=== PATIENT | female | born 1955 | race Caucasian/White ===

== ENCOUNTER 2020-12-31 11:17 | Day surgery (SDC) | payer MEDICARE ==
[~2020-12-31] VITALS: Ht 162.6 cm; Wt 63.5 kg
[~2020-12-31 11:17] MED LIST: BAYER CHEWABLE81 MG PO; BREO ELLIPTA 11 EACH INH; LISINOPRIL5 MG PO; VENTOLIN HFA [SP8 GM INH
[2020-12-31 11:38] LABS: BASOPHILS 0.4 % (0-2); HEMATOCRIT 32.5 % (36.0-48.0); HEMOGLOBIN 10.4 g/dL (12-16); IMMATURE GRANULOCYTES 0.1 % (0-5); LYMPHOCYTE ABS# 3.02 10x3/uL (1.18-3.74); LYMPHOCYTES 44.4 % (15-50); MCH 26.9 pg (26.0-34.0); MCV 84.2 fL (80.0-100.0); MEAN PLATELET VOLUME 9.3 fL (7.4-10.4); MONOCYTES 9.9 % (2-11); NEUTROPHILS 41.2 % (40-80); PLATELET COUNT 421 10x3/uL (130-400); RBC 3.86 10x6/uL (4.00-5.40); WBC 6.8 10x3/uL (4.8-10.8)
[2020-12-31 11:45] LABS: CALC OSMOLALITY 277 mosm/kg (275-300); CALCIUM 9.1 mg/dL (8.5-10.1); CARBON DIOXIDE 23.9 mmol/L (21.0-32.0); CHLORIDE - SERUM 106 mmol/L (98-107); CREATININE - SERUM 0.7 mg/dL (0.6-1.3); GLUCOSE 87 mg/dL (74-106); POTASSIUM - SERUM 3.9 mmol/L (3.5-5.1); SODIUM 139 mmol/L (136-145); UREA NITROGEN 15 mg/dL (7-18); eGFR NON AFRICAN AMERICAN 89 mL/min (90-120)
[2020-12-31 14:54] VITALS: BP 130/63; Ht 162.6 cm; Wt 63.5 kg
--- NOTE | 2020-12-31 19:18 | NUR ---
1900 PT RESTING RIGHT ARM IN SLING.
--- NOTE | 2020-12-31 19:59 | NUR ---
1939 PAIN RELIEVED AND IV REMOVED AND INSTRUCTIONS GIVEN
--- NOTE | 2021-01-01 05:59 | OP ---
PATIENT NAME: MARK CONLEY MEDICAL RECORD: [id number] :54 LOCATION:[facility] ADMISSION DATE: SURGEON: OWEN ARANGO DO DATE OF OPERATION: 12/31/2020 PROCEDURE PERFORMED: Right distal radius open reduction and internal fixation. PREOPERATIVE DIAGNOSIS: Right distal radius intra-articular fracture of 4 pieces. POSTOPERATIVE DIAGNOSIS: Right distal radius intra-articular fracture of 4 pieces. INDICATIONS: Ms. Conley is a 65-year-old female who fell onto her right distal radius a few days ago, was seen in my clinic and set up for surgery today. She was seen to have a comminuted intra-articular right distal radius fracture. I informed her of the risks of malunion, nonunion, continued pain, need for further surgery, infection, bleeding, damage to the median nerve and other nerves in the area, blood clots and even and she signed the consent. SURGEON: Owen Arango DO. DESCRIPTION OF PROCEDURE: The patient was given a block by Anesthesia in the preoperative area, taken to the OR suite, laid in supine position, given general anesthetic and LMA was placed. She was given a gram of Ancef and then the right upper extremity was prepped and draped in sterile fashion. A timeout was performed. Everyone was in agreement with the correct side, site, patient and procedure. I then began by making an incision over the flexor carpi radialis tendon, made careful dissection down to it, took it radially and opened up the interval and then peeled off the pronator quadratus and saw the comminuted fracture. I then reduced the fracture and held it with a K-wire. I then put on the Acumed distal radius plate and pinned it into place. Once this was in adequate position, the fragments were held well. I put in 3 distal locking screws and then a shaft screw and 2 locking screws in the shaft and then 2 more screws into the radial styloid holding the reduction nicely. It was in good position on AP and lateral and I then let the tourniquet down. Any bleeding was coagulated with a pickup and a Bovie. I then had Jagruti Greene, certified ophthalmology surgical technician, close the skin with 3-0 Vicryl in inverted interrupted fashion, placed Prineo glue on it and then dressed with Adaptic, 4 x 4s, cast padding and a volar splint 3 x 12 secured with an Yaniv wrap. Tourniquet was used and I exsanguinated the right upper extremity prior to starting to 250 mmHg. It was inflated and was up for 25 minutes. TRANSINT:[id number] Voice Confirmation ID: [id number] DOCUMENT ID: [id number] OWEN ARANGO DO at 0559 CC: [id number] DICTATION DATE: 12/31/20 174 MANAGER PEST: 01/01/21 0351 [facility] 12/31/20 [id number] [place] [address]
== END 2020-12-31 19:50 | disposition home or self-care (01) ==
LOC: D.OPS 11:17
PROVIDERS: Anesthesiology; ATTEND Orthopaedic Surgery
DX: S52.571A Other intraarticular fracture of lower end of right radius, initial encounter for closed fracture (principal); W19.XXXA Unspecified fall, initial encounter; J44.9 Chronic obstructive pulmonary disease, unspecified